=== PATIENT | male | born 1935 ===

== ENCOUNTER 2016-07-03 11:02 | Emergency (ER) | payer MEDICARE, OTHER ==
[2016-07-03 11:03] VITALS: BMI 29.0
--- NOTE | 2016-07-03 12:20 | ED PDOC ---
HPI: Abdomen Time Seen by Provider: 07/03/16 11:41 Chief Complaint (Nursing): Medical Clearance Chief Complaint (Provider): Medical Clearance History Per: Patient History/Exam Limitations: no limitations Onset/Duration Of Symptoms: Hrs Current Symptoms Are (Timing): Still Present Severity: None Exacerbating Factors: None Alleviating Factors: None Additional Complaint(s): Patient is a 80 year old male with a history of prostate CA s/p radiation, right sided hydronephrosis with indwelling nephrostomy tube. Presents to ED today due to the tube breaking off this morning and now leaking urine. Patient also notes chronic urinary incontinence. Denies fever, abdominal pain. Urologist: Dr. Peña Nephrostomy tube placed by IR, Dr. Lugo Past Medical History Reviewed: Historical Data, Nursing Documentation, Vital Signs Vital Signs: Last Vital Signs Temp 97.5 F L 07/03/16 14:57 Pulse 90 07/03/16 16:31 Resp 18 07/03/16 16:31 BP 111/66 07/03/16 16:31 Pulse Ox 98 07/04/16 15:59 - Medical History PMH: Arthritis, Atrial Fibrillation, HTN Denies: Chronic Kidney Disease - Surgical History Other surgeries: Nephrostomy tube, ureter stent - Family History Family History: States: Unknown Family Hx - Living Arrangements Living Arrangements: With Family - Home Medications Home Medications: Ambulatory Orders Medication Instructions Recorded Amlodipine Besylate/Benazepril 1 cap PO DAILY #30 capsule 04/16/16 [Lotrel 5-20 mg Capsule] Apixaban [Eliquis] 5 mg PO BID #60 tab 04/16/16 Oxybutynin [Ditropan Tab] 5 mg PO DAILY #30 tab 04/16/16 Ciprofloxacin [Cipro] 1 mg PO BID 05/26/16 - Allergies Allergies/Adverse Reactions: Allergies Allergy/AdvReac Type Severity Reaction Status Date / Time No Known Allergies Allergy Verified 07/03/16 11:28 Review of Systems ROS Statement: Except As Marked, All Systems Reviewed And Found Negative Constitutional: Negative for: Fever Gastrointestinal: Negative for: Nausea, Vomiting, Abdominal Pain Genitourinary Male: Negative for: Dysuria, Frequency, Hematuria Musculoskeletal: Negative for: Back Pain Physical Exam - Reviewed Nursing Documentation Reviewed: Yes Vital Signs Reviewed: Yes - Physical Exam Appears: Positive for: Non-toxic, No Acute Distress Skin: Positive for: Normal Color, Warm Eye Exam: Positive for: Normal appearance Neck: Positive for: Normal, Painless ROM Cardiovascular/Chest: Positive for: Regular Rate, Rhythm. Negative for: Murmur Respiratory: Positive for: Normal Breath Sounds. Negative for: Respiratory Distress Gastrointestinal/Abdominal: Positive for: Normal Exam, Other (Right side of abdomen: Nephrostomy tube broken but not dislodged with urine leaking from proximal segment ). Negative for: Tenderness Back: Positive for: Normal Inspection Extremity: Positive for: Normal ROM Neurologic/Psych: Positive for: Alert, Oriented - ECG O2 Sat by Pulse Oximetry: 98 (RA) Pulse Ox Interpretation: Normal Medical Decision Making Medical Decision Making: Time: 1210 Initial impression: Broken, dysfunction nephrostomy tube Initial plan: Case discussed with Dr. Peña who recommended contacting Dr. Lugo for possible tube replacement recommend tube change, will perform procedure this afternoon in IR with discharge according to Dr. Peña Time: 1500 Patient signed out to Dr. Lloyd pending IR's nephrology tube placement Scribe Attestation: Documented by Missy Martinez acting as a scribe for Lola Fontenot MD MD Scribe Attestation: All medical record entries made by the Scribe were at my direction and personally dictated by me. I have reviewed the chart and agree that the record accurately reflects my personal performance of the history, physical exam, medical decision making, and the department course for this patient. I have also personally directed, reviewed, and agree with the discharge instructions and disposition. Disposition - Clinical Impression Clinical Impression: Nephrostomy tube displaced - Patient ED Disposition Is Patient to be Admitted: Transfer of Care Counseled Patient/Family Regarding: Studies Performed, Diagnosis - Disposition Referrals: Yuniel Peña MD [Medical Doctor] - Disposition: Transfer of Care Disposition Time: 15:00 Condition: FAIR Additional Instructions: follow up with Dr Peña as instructed. return to the ED with any worsening or concerning symptoms. Instructions: Nephrostomy Tube Care (ED) Patient Signed Over To: Rufus Lloyd
[2016-07-03] MEDS ORDERED: Iodixanol 320 MG/ML 100 ML BOTTLE IV ONE (14:04)
[2016-07-03] MEDS ORDERED: Lidocaine 1% Inj (20ml) ONE (14:09)
[2016-07-03] MEDS ORDERED: Povidone Iodine Topical 10% Sol ONE (14:49)
[2016-07-03 14:57] VITALS: RESP 18; TEMP 97.5
--- NOTE | 2016-07-03 15:42 | ED PDOC ---
- ECG O2 Sat by Pulse Oximetry: 98 (RA) Medical Decision Making Medical Decision Making: Time: 1500 Patient signed out by Dr. Fontenot pending IR procedure Time: 1550 Patient returned from IR, procedure went well with no complication. Patient to be discharged at this time with follow up instructions, advised to follow up with Dr. Pamela Michaelibcesar Attestation: Documented by Missy Martinez acting as a scribe for Rufus Lloyd MD MD Scribe Attestation: All medical record entries made by the Scribe were at my direction and personally dictated by me. I have reviewed the chart and agree that the record accurately reflects my personal performance of the history, physical exam, medical decision making, and the department course for this patient. I have also personally directed, reviewed, and agree with the discharge instructions and disposition. Disposition - Clinical Impression Clinical Impression: Nephrostomy tube displaced - POA Present On Arrival: None - Disposition Referrals: Yuniel Peña MD [Medical Doctor] - Disposition: Routine/Home Disposition Time: 16:00 Condition: GOOD Additional Instructions: follow up with Dr Peña as instructed. return to the ED with any worsening or concerning symptoms. Instructions: Nephrostomy Tube Care (ED)
[2016-07-03 16:33] VITALS: BP 111/66; PULSE 90
[2016-07-03 20:09] VITALS: O2SAT 98
--- NOTE | 2016-07-08 13:08 | RAD ---
Right nephrostomy tube exchange History: Right-sided hydronephrosis. Comparison: Comparison is made to fluoroscopic images from prior evaluation on 05/26/2016. Procedure and findings: The procedure was explained to the patient in detail including relative risks and benefits. The patient understood the procedure well and provided written informed consent. Initial corporate director of pharmacy radiograph demonstrates the right-sided nephrostomy tube. Direct inspection demonstrates that the nephrostomy tube was cut from the outside with approximately 3-4 centimeters sutured to the skin. The sutures were cut. The access site was mildly anesthetized with 1 percent lidocaine. 75 centimeter stiff Amplatz guidewire was introduced through the existing catheter. The existing catheter was removed. A new 25 centimeter 8 [place]raini nephrostomy catheter was inserted. Confirmation of the positioning was performed by injecting a small amount of IV contrast. Impression: Successful removal of malfunctioning nephrostomy and placement of a new nephrostomy catheter in its place. The patient tolerated the procedure without any adverse event.
== END 2016-07-03 16:09 | disposition home or self-care (01) ==
LOC: H.ER 11:02
DX: T83.012A Breakdown (mechanical) of nephrostomy catheter, initial encounter (principal)
CPT/HCPCS: 75984; 99282; C1729; C1769; Q9967

== ENCOUNTER 2016-08-28 10:39 | Day surgery (SDC) | payer MEDICARE, OTHER ==
[2016-08-28 10:47] VITALS: BMI 29.5
[2016-08-28] MEDS ORDERED: Lactated Ringer's 1,000 ML IV ONE ×2 (12:00→14:05)
[2016-08-28 13:12] LABS: HEMATOCRIT 37.4 % (35.0-51.0); MEAN CELL VOLUME 89.1 fl (80.0-94.0); MEAN CORPUSCULAR HEMOGLOBIN 29.3 pg (27.0-31.0); MEAN CORPUSCULAR HGB CONC 32.9 g/dL (33.0-37.0); RED CELL DISTRIBUTION WIDTH 14.5 % (11.5-14.5); WHITE BLOOD COUNT 7.5 K/uL (4.8-10.8)
[2016-08-28 14:16] LABS: ALKALINE PHOSPHATASE 62 U/L (38-126); ALT/SGPT 23 U/L (21-72); AST/SGOT 18 U/L (17-59); BILIRUBIN,TOTAL 0.3 mg/dl (0.2-1.3); BLOOD UREA NITROGEN 29 mg/dl (9-20); CALCIUM 9.2 mg/dL (8.4-10.2); CARBON DIOXIDE 23 mmol/L (22-30); CHLORIDE 105 mmol/L (98-107); GFR AFRICAN-AMERICAN > 60; GLUCOSE,RANDOM 90 mg/dL (75-110); POTASSIUM 4.8 MMOL/L (3.6-5.0); SODIUM 139 mmol/l (132-148); TOTAL PROTEIN 6.9 G/DL (6.3-8.2)
[2016-08-28 14:17] LABS: ALB/GLOB RATIO 1.4 (1.0-2.1)
[2016-08-28 14:55] LABS: PARTIAL THROMBOPLASTIN TIME 27.7 SECONDS (23.3-32.5)
--- NOTE | 2016-08-28 15:00 | PCM.SURG1 ---
Surgeon's Initial Post Op Note - Surgeon's Notes Surgeon: Jet Martinez MD Link Cutter: NONE Type of Anesthesia: IV Sedation Pre-Operative Diagnosis: Ureteral obstruction Operative Findings: Antegrade nephrostogram showed severe pelviectasis. There is no flow of contrast across the utereovesical junction. Post-Operative Diagnosis: Ureteral obstruction Operation Performed: Antegrade nephrostogram, right perc. nephrostomy tube change for a new 8 fr drainage catheter. Specimen/Specimens Removed: 10 cc of urine for culture. Estimated Blood Loss: EBL {In ML}: 0 Blood Products Given: N/A Drains Used: No Drains Post-Op Condition: Good Date of Surgery/Procedure: 08/28/16 Time of Surgery/Procedure: 13:40
--- NOTE | 2016-08-28 15:03 | CP.SDSHP ---
Same Day Surgery H & P - History Proposed Procedure: Right percutaneous nephrostomy tube change Pre-Op Diagnosis: Ureteral obstruction - Allergies Allergies: Allergies No Known Allergies Allergy (Verified 07/03/16 11:28) - Physical Exam Vital Signs: Vital Signs 08/28/16 08/28/16 08/28/16 13:55 14:03 14:05 Temperature 97.5 F L 97.2 F L Pulse Rate 81 81 96 H Respiratory 20 18 Rate Blood Pressure 130/74 140/72 O2 Sat by Pulse 98 100 Oximetry 08/28/16 08/28/16 08/28/16 14:20 14:24 14:35 Temperature 97.5 F L 97.5 F L 97.6 F Pulse Rate 81 92 H 80 Respiratory 18 18 20 Rate Blood Pressure 132/71 169/99 H 128/68 O2 Sat by Pulse 100 100 100 Oximetry Mental Status: Alert & Oriented x3 Neuro: WNL Heart: WNL - Impression Impression: Pt with right perc. nephrostomy tube and unable to void. He is referred for antegrade nephrostogram and nephrostomy tube change. Pt. Evaluated Today:Candidate for Anesthesia & Procedure: Yes (ASA 2 Malampati 3) - Date & Time Date: 08/28/16 Time: 13:00 Short Stay Discharge - Short Stay Discharge Admitting Diagnosis/Reason for Visit: HYDRONEPHROSIS Disposition: HOME/ ROUTINE Referrals: Yuniel Peña MD [Primary Care Provider] -
[2016-08-28 15:22] VITALS: RESP 18; O2SAT 99
[2016-08-28 16:04] VITALS: BP 117/53; PULSE 76; TEMP 97.2
== END 2016-08-28 13:00 | disposition home or self-care (01) ==
LOC: H.OPSURG 10:39
PROVIDERS: ATTEND Urology
DX: N13.39 Other hydronephrosis (principal); E66.9 Obesity, unspecified; I10 Essential (primary) hypertension
CPT/HCPCS: 36415; 50435; 80053; 85027; 85610; 85730; 87086; C1725; C1729; C1769; J7120

== ENCOUNTER 2016-09-12 16:09 | Emergency (ER) | payer MEDICARE, OTHER ==
[2016-09-12 16:10] VITALS: BMI 29.5
[2016-09-12 16:24] VITALS: BP 146/71; PULSE 96; RESP 18; TEMP 98.1; O2SAT 97
--- NOTE | 2016-09-12 17:01 | ED PDOC ---
HPI: Male Pain Time Seen by Provider: 09/12/16 16:26 Chief Complaint (Nursing): Male Genitourinary Chief Complaint (Provider): Male Genitourinary History Per: Patient History/Exam Limitations: no limitations Onset/Duration Of Symptoms: Hrs (prior to arrival ) Additional Complaint(s): Lopez Rosenberg, 80 year old male presents to the ED on 09/12/16 after noticing leakage in his nephrostomy tube. The patient reports having the nephrostomy tube placed on 08/28/16 and had a follow-up appointment with Dr. Peña on Thursday. The patient noticed urine leaking from his tubing last night which prompted him to visit the emergency room today. The patient pointed out the leakage coming from the white connecting piece that enters the kidney and goes into the urine bag. Past Medical History Reviewed: Historical Data, Nursing Documentation, Vital Signs Vital Signs: Last Vital Signs Temp 98.1 F 09/12/16 16:21 Pulse 96 H 09/12/16 16:21 Resp 18 09/12/16 16:21 BP 146/71 09/12/16 16:21 Pulse Ox 97 09/12/16 16:21 - Medical History PMH: Arthritis, Atrial Fibrillation, HTN Denies: Chronic Kidney Disease - Family History Family History: States: Unknown Family Hx - Home Medications Home Medications: Ambulatory Orders Medication Instructions Recorded Amlodipine Besylate/Benazepril 1 cap PO DAILY #30 capsule 04/16/16 [Lotrel 5-20 mg Capsule] Apixaban [Eliquis] 5 mg PO BID #60 tab 04/16/16 Oxybutynin [Ditropan Tab] 5 mg PO DAILY #30 tab 04/16/16 Ciprofloxacin [Cipro] 1 mg PO BID 05/26/16 - Allergies Allergies/Adverse Reactions: Allergies Allergy/AdvReac Type Severity Reaction Status Date / Time No Known Allergies Allergy Verified 09/12/16 16:21 Review of Systems ROS Statement: Except As Marked, All Systems Reviewed And Found Negative Constitutional: Positive for: Other (leakage from nephrostomy tube) Physical Exam - Reviewed Nursing Documentation Reviewed: Yes Vital Signs Reviewed: Yes - Physical Exam Appears: Positive for: Non-toxic, No Acute Distress Head Exam: Positive for: ATRAUMATIC, NORMOCEPHALIC Back: Negative for: Other (no surrounding erythema, edema, or ecchymosis around insertion site of nephrostomy tube) Neurologic/Psych: Positive for: Alert, Oriented (x3) - ECG O2 Sat by Pulse Oximetry: 97 (RA) Pulse Ox Interpretation: Normal Medical Decision Making Medical Decision Making: Initial Impression: Nephrostomy tube leaking Initial Plan: Some liquid noted at the white connecting piece. Tightened white connecting piece at junction. No urine leaking. New dressing applied around insertion site. Scribe Attestation: Documented by Sailaja Reyes, acting as a scribe for Kati King PA-C. Provider Scribe Attestation: All medical record entries made by the Scribe were at my direction and personally dictated by me. I have reviewed the chart and agree that the record accurately reflects my personal performance of the history, physical exam, medical decision making, and the department course for this patient. I have also personally directed, reviewed, and agree with the discharge instructions and disposition. Disposition - Clinical Impression Clinical Impression: Malfunction of nephrostomy tube - Patient ED Disposition Is Patient to be Admitted: No - Disposition Referrals: Yuniel Peña MD [Medical Doctor] - Disposition: Routine/Home Disposition Time: 17:26 Condition: GOOD Instructions: Nephrostomy Tube Care (ED) Print Language: OCCITAN
== END 2016-09-12 17:36 | disposition home or self-care (01) ==
LOC: H.ER 16:09
DX: T83.028A Displacement of other urinary catheter, initial encounter (principal)

== ENCOUNTER 2016-11-03 10:11 | Day surgery (SDC) | payer MEDICARE, SELFPAY ==
[2016-11-03 10:41] VITALS: BMI 30.1
[2016-11-03 13:33] VITALS: RESP 18
[2016-11-03] MEDS ORDERED: Iodixanol 320 MG/ML 100 ML BOTTLE IV ONE (13:36)
[2016-11-03] MEDS ORDERED: Lidocaine 1% Inj (20ml) ONE (13:49)
--- NOTE | 2016-11-03 14:02 | CP.SDSHP ---
Same Day Surgery H & P - History Proposed Procedure: Right nephrostomy tube change Pre-Op Diagnosis: Hydronephrosis. - Allergies Allergies: Allergies No Known Allergies Allergy (Verified 09/12/16 16:21) - Physical Exam Vital Signs: Vital Signs 11/03/16 11/03/16 10:49 13:32 Temperature 97.8 F 97 F L Pulse Rate 88 85 Respiratory 20 18 Rate Blood Pressure 119/64 127/59 L O2 Sat by Pulse 95 100 Oximetry Mental Status: Alert & Oriented x3 Neuro: WNL Heart: WNL Lungs: WNL - Impression Impression: Pt with hydronephrosis presents for Right nephrostomy tube change Pt. Evaluated Today:Candidate for Anesthesia & Procedure: No - Date & Time Date: 11/03/16 Time: 13:35 Short Stay Discharge - Short Stay Discharge Admitting Diagnosis/Reason for Visit: N13.39
--- NOTE | 2016-11-03 14:03 | PCM.SURG1 ---
Surgeon's Initial Post Op Note - Surgeon's Notes Surgeon: Jet Martinez MD Net Front End Developer: None Type of Anesthesia: Local Pre-Operative Diagnosis: Right hydronephrosis. Operative Findings: Right nephrostogram shows moderate pelviectasis. Post-Operative Diagnosis: Right hydronephrosis Operation Performed: Right perc. nephrstomy tube change. Specimen/Specimens Removed: None Estimated Blood Loss: EBL {In ML}: 0 Blood Products Given: N/A Drains Used: No Drains Post-Op Condition: Good Date of Surgery/Procedure: 11/03/16 Time of Surgery/Procedure: 14:00
[2016-11-03 14:23] VITALS: BP 142/79; PULSE 86; TEMP 97.8; O2SAT 98
== END 2016-11-03 23:00 | disposition home or self-care (01) ==
LOC: H.OPSURG 10:11
PROVIDERS: ATTEND Radiology Vascular & Interventional Radiology
DX: N13.30 Unspecified hydronephrosis (principal)
CPT/HCPCS: 50435; C1729; C1769; Q9967

== ENCOUNTER 2017-01-01 09:09 | Day surgery (SDC) | payer MEDICARE ==
[2017-01-01] MEDS ORDERED: Iodixanol 320 MG/ML 100 ML BOTTLE IV ONE (11:57)
[2017-01-01] MEDS ORDERED: Lidocaine 1% Inj (20ml) ONE (12:18)
--- NOTE | 2017-01-01 12:27 | CP.SDSHP ---
Same Day Surgery H & P - History Proposed Procedure: Right nephrostomy tube change Pre-Op Diagnosis: Ureteral obstruction - Allergies Allergies: Allergies No Known Allergies Allergy (Verified 09/12/16 16:21) - Physical Exam Vital Signs: Vital Signs 01/01/17 01/01/17 01/01/17 09:31 09:36 12:08 Temperature 98.9 F 97.8 F Pulse Rate 92 H 92 H 82 Respiratory 18 16 Rate Blood Pressure 119/58 L 121/63 O2 Sat by Pulse 98 100 Oximetry Mental Status: Alert & Oriented x3 Neuro: WNL Heart: WNL Lungs: WNL - Impression Impression: Pt with ureteral obstruction refered for right perc. nephrostomy tube change. Plan right PCN change. Pt. Evaluated Today:Candidate for Anesthesia & Procedure: No - Date & Time Date: 01/01/17 Time: 12:00 Short Stay Discharge - Short Stay Discharge Admitting Diagnosis/Reason for Visit: N13.39 Referrals: Cody Rodriugez MD [Primary Care Provider] -
--- NOTE | 2017-01-01 12:29 | PCM.SURG1 ---
Surgeon's Initial Post Op Note - Surgeon's Notes Surgeon: Jet Martinez MD Almond Paste Mixer: NONE Type of Anesthesia: Local Pre-Operative Diagnosis: Ureteral obstruction Operative Findings: Right PCN in place. Moderate pelviectasis. Post-Operative Diagnosis: Ureteral obstruction Operation Performed: Perc. nephrostomy tube change Specimen/Specimens Removed: none Estimated Blood Loss: EBL {In ML}: 0 Blood Products Given: N/A Drains Used: No Drains Post-Op Condition: Good Date of Surgery/Procedure: 01/01/17 Time of Surgery/Procedure: 12:25
[2017-01-01 12:48] VITALS: BP 141/72; PULSE 87; RESP 18; TEMP 97.6; O2SAT 98
--- NOTE | 2017-01-05 13:37 | RAD ---
PROCEDURE: Date of procedure: 01/01/2017 Procedure: 1. Right nephrostogram, CPT 43317. 2. Exchange of right percutaneous nephrostomy tube, CPT 70755 Medications: Patient was sedated by anesthesiologist along with physiologic monitoring, 8 cc 2% Lidocaine. Radiation:61.59 MGy Fluoro time: 64 seconds EBL: 2 cc HISTORY: Uteral obstruction TECHNIQUE: Following informed consent the procedure time-out, patient was placed prone on the interventional table. The patient's right percutaneous nephrostomy tube and surrounding skin were prepped and draped in the usual sterile fashion. Spot radiographs show the presence of right percutaneous nephrostomy tube. Dilute contrast injected into the right percutaneous nephrostomy tube showed moderate hydronephrosis. Antegrade nephrostogram showed stenosis of the ureter at the UPJ and at the UVJ. A new 8 [place] nephrostomy tube was advanced over the wire and formed within the renal pelvis. The tube was secured to patient's skin with 2-0 Prolone and a dressing applied. IMPRESSION: Right nephrostogram showed proximal and severe distal right ureteral obstruction. New right 8 [place] nephrostomy tubes were formed in the renal pelvis.
== END 2017-01-01 13:10 | disposition home or self-care (01) ==
LOC: H.OPSURG 09:09
PROVIDERS: ATTEND Urology
DX: N13.39 Other hydronephrosis (principal)
CPT/HCPCS: 75984; C1729; C1769; Q9967

== ENCOUNTER 2017-03-02 08:14 | Day surgery (SDC) | payer MEDICARE, SELFPAY ==
[2017-02-06 11:51] VITALS: BMI 29.5
[~2017-03-02 08:14] MED LIST: cefTRIAXone (Rocephin) 1 gm Inj ONE
[2017-03-02] MEDS ORDERED: cefTRIAXone IV 1 gm in Dextros 50 ML IVPB ONE (12:51)
[2017-03-02] MEDS ORDERED: Midazolam 2 MG/2 ML VIAL ONE (12:55)
[2017-03-02] MEDS ORDERED: Lidocaine 1% 5ml Abboject IV ONE (12:55)
[2017-03-02] MEDS ORDERED: Propofol 10 mg/ml Inj (20 ML) ONE (12:55)
[2017-03-02] MEDS ORDERED: Lactated Ringer's 1,000 ML IV ONE (13:02)
[2017-03-02] MEDS ORDERED: cefTRIAXone (Rocephin) 1 gm Inj IVPB ONE (13:05)
[2017-03-02 13:45] VITALS: RESP 18
[2017-03-02] MEDS ORDERED: HYDROmorphone 0.5 mg/0.5 ml ISec IVP PRN (13:53)
[2017-03-02] MEDS ORDERED: Lactated Ringer's 1,000 ML IV SCH (14:00)
--- NOTE | 2017-03-02 14:05 | OP ---
PROCEDURE DATE: 03/02/2017 PREOPERATIVE DIAGNOSES: Hydronephrosis with bladder neck stricture. POSTOPERATIVE DIAGNOSES: Hydronephrosis with bladder neck stricture. PROCEDURE PERFORMED: Cystoscopy, internal optical urethrotomy at the level of the bladder neck and removal of a left existing double-J stent under general anesthesia. DESCRIPTION OF PROCEDURE: The patient was placed on the operating room table in dorsal lithotomy position. The area of the groin was draped and prepped in the sterile manner. Attempted to enter into the bladder using a #21 cystoscope, but at the level of the bladder neck, there was a significant stricture that did not allow that to happen. I then deployed an optical urethrotome and I made an incision just small enough at the 12 o'clock and 6 o'clock to be able to get the 21 scope in. Once I did that, the J stent was easily seen and I removed. The entire trigone area was full of edematous tissue. Once the stent was removed, I could not even find that orifice again just even to cannulate it. It was not visible and the right side is still not visible at this time, so the J stent was removed, the instrumentation was removed. The patient was taken from the operating room in good condition. Yuniel Peña MD
[2017-03-02 16:09] VITALS: BP 114/75; PULSE 98; TEMP 97.6; O2SAT 98
== END 2017-03-02 16:58 | disposition home or self-care (01) ==
LOC: H.OPSURG 08:14
PROVIDERS: ATTEND Urology
DX: N23 Unspecified renal colic (principal); I48.91 Unspecified atrial fibrillation; I10 Essential (primary) hypertension
CPT/HCPCS: 36415; 52275; 85610; 85730; 88304; C1769; J0696; J2250; J2704; J3010; J7120

== ENCOUNTER 2017-04-28 07:45 | Day surgery (SDC) | payer MEDICARE ==
[2017-04-28 07:55] VITALS: BMI 30.4
[2017-04-28 08:34] LABS: HEMOGLOBIN 12.8 g/dL (12.0-18.0); MEAN CORPUSCULAR HEMOGLOBIN 29.6 pg (27.0-31.0); MEAN CORPUSCULAR HGB CONC 33.2 g/dL (33.0-37.0); RBC 4.33 Mil/uL (4.40-5.90); RED CELL DISTRIBUTION WIDTH 14.6 % (11.5-14.5); WHITE BLOOD COUNT 7.2 K/uL (4.8-10.8)
[2017-04-28] MEDS ORDERED: Iodixanol 320 MG/ML 100 ML BOTTLE IV ONE (09:03)
[2017-04-28] MEDS ORDERED: Povidone Iodine Topical 10% Sol ONE (09:03)
[2017-04-28] MEDS ORDERED: Lidocaine 1% Inj (20ml) ONE (09:15)
--- NOTE | 2017-04-28 09:54 | CP.SDSHP ---
Same Day Surgery H & P - History Proposed Procedure: Right antegrade nephrostogram and nephrostomy exchange/ conversion to nephroureteral stent Pre-Op Diagnosis: Chronic right distal ureteral obstruction - Allergies Allergies: Allergies No Known Allergies Allergy (Verified 04/28/17 08:55) - Physical Exam Vital Signs: Vital Signs 04/28/17 04/28/17 08:42 08:46 Temperature 97.6 F Pulse Rate 79 79 Respiratory 18 Rate Blood Pressure 115/78 O2 Sat by Pulse 97 Oximetry - Impression Impression: 81 yo male w/ chronic right ureteral obstruction s/p right PCN; plan antegrade nephrostogram and nephrostomy exchange vs conversion to nephroureteral stent - Date & Time Date: 04/28/17 Time: 09:15 Short Stay Discharge - Short Stay Discharge Admitting Diagnosis/Reason for Visit: RT HYDRONEPHROSIS Disposition: HOME/ ROUTINE Referrals: Cody Rodriguez MD [Primary Care Provider] -
[2017-04-28 10:00] LABS: INR 1.2 (0.9-1.2); PROTHROMBIN TIME 12.8 Seconds (9.8-13.1)
[2017-04-28 10:22] LABS: CALCIUM 9.4 mg/dL (8.4-10.2)
[2017-04-28] MEDS ORDERED: Ciprofloxacin 400mg/200ml D5W 400 MG/200 ML BAG IVPB STA (11:03)
--- NOTE | 2017-04-28 12:36 | PCM.SURG1 ---
Surgeon's Initial Post Op Note - Surgeon's Notes Surgeon: Alec Negron MD Typing Bookkeeper: None Type of Anesthesia: Local Pre-Operative Diagnosis: chronic right hydronephrosis, ureteral occlusion Operative Findings: severe pelvocaliectasis, patent right ureter w/ distal occlusion. successful over the wire exchange with new 8 serbian PCN placed in renal pelvis Post-Operative Diagnosis: same Operation Performed: right PCN exchange Specimen/Specimens Removed: n/a Estimated Blood Loss: EBL {In ML}: 0 Date of Surgery/Procedure: 04/28/17 Time of Surgery/Procedure: 12:15
[2017-04-28 13:01] VITALS: O2SAT 96
[2017-04-28 13:54] VITALS: RESP 18
[2017-04-28 14:37] VITALS: BP 107/65; PULSE 80; TEMP 97.9
--- NOTE | 2017-04-28 15:13 | VASCULAR ---
PROCEDURE: RIGHT NEPHROSTOMY TUBE EXCHANGE CLINICAL HISTORY: 81-year-old male with history of prostate cancer and chronic right hydronephrosis status post nephrostomy tube is referred to Interventional Radiology for routine nephrostomy tube exchange. COMPARISON: Right nephrostomy tube exchange performed 01/01/2017. PROCEDURE: 1. Over the wire exchange of right nephrostomy tube. PRE-PROCEDURE FINDINGS: 1. Fluoroscopic supervisor in circuit testing image demonstrated right nephrostomy tube projecting over the right flank. 2. Antegrade nephrostogram demonstrated opacification of the collecting system without flow of contrast into the bladder. POST-PROCEDURE FINDINGS: 1. Distal right ureteral occlusion. 2. Successful over the wire exchange of right nephrostomy tube with pigtail in the renal pelvis. INTERVENTIONAL RADIOLOGIST: Alec Negron M.D. (the attending was present for the entire procedure) ANESTHESIA: None. MEDICATIONS: Lidocaine 1% for local subcutaneous analgesia. mL contrast. CONTRAST: 20 mL contrast. COMPLICATIONS: None. RADIATION DOSE: Fluoroscopy Time: 941.2 seconds Cumulative Dose: 631.91 mGy PROCEDURE DESCRIPTION AND FINDINGS: The risks, benefits, alternatives and possible complications of the procedure were fully discussed; all questions were answered and informed consent was obtained. The patient was brought into the interventional suite and a pre-procedure 'time-out' was performed. The patient was placed on the fluoroscopy table in the prone position. The right flank was prepped and draped in the usual sterile fashion. Maximum sterile barrier precautions were maintained throughout the entire procedure. Fluoroscopic supervisor in circuit testing image of the abdomen and pelvis demonstrated right nephrostomy tube projecting over the right flank. Antegrade nephrostogram performed via the indwelling right nephrostomy tube demonstrated opacification of the renal collecting system. The external end of the catheter was cut and a 0.035 guidewire was advanced via the remaining portion of the catheter into the renal pelvis. The catheter was removed over the guidewire and exchanged for 4 [place] Berenstein catheter. The guidewire and catheter were manipulated into the right ureter. Contrast injection into the ureter revealed distal ureteral occlusion. The catheter was removed over the guidewire and exchanged for a new 8 [place] nephrostomy tube. The pigtail was formed in the renal pelvis. Gentle contrast injection confirmed optimal position within the renal pelvis. The catheter was secured to the skin with a 2-0 non-absorbable suture and left to gravity bag drainage externally. A sterile dressing was applied. The patient tolerated the procedure well without immediate post-procedure complications and was transferred back to the floor in stable condition. IMPRESSION: RIGHT ANTEGRADE NEPHROSTOGRAM DEMONSTRATED DISTAL URETERAL OCCLUSION. THE OCCLUSION COULD NOT BE CROSSED. SUCCESSFUL OVER THE WIRE EXCHANGE OF THE 8 L[place] RIGHT NEPHROSTOMY TUBE.
== END 2017-04-28 14:50 | disposition home or self-care (01) ==
LOC: H.OPSURG 07:45
PROVIDERS: ATTEND Urology
DX: N13.2 Hydronephrosis with renal and ureteral calculous obstruction (principal); Z85.46 Personal history of malignant neoplasm of prostate; N13.5 Crossing vessel and stricture of ureter without hydronephrosis; Z93.6 Other artificial openings of urinary tract status
CPT/HCPCS: 36415; 50435; 80048; 85027; 85610; 85730; C1729; C1769; C1887; J0744; Q9967

== ENCOUNTER 2017-07-21 07:58 | Day surgery (SDC) | payer MEDICARE ==
[2017-07-21 08:41] LABS: BASO % 0.5 % (0.0-2.0); EOS # 0.2 K/uL (0.0-0.7); EOS % 2.3 % (0.0-4.0); HEMOGLOBIN 15.1 g/dL (12.0-18.0); LYMPH # 1.1 K/uL (1.0-4.3); LYMPH % 15.8 % (20.0-40.0); MEAN CELL VOLUME 89.2 fl (80.0-94.0); MEAN CORPUSCULAR HEMOGLOBIN 29.6 pg (27.0-31.0); MEAN CORPUSCULAR HGB CONC 33.1 g/dL (33.0-37.0); MEAN PLATELET VOLUME 8.9 fl (7.2-11.7); MONO # 0.6 K/uL (0.0-0.8); MONO % 9.3 % (0.0-10.0); NEUT # 4.9 K/uL (1.8-7.0); NEUT % 72.1 % (50.0-75.0); NRBC % 0.1 % (0.0-0.0); RBC 5.11 Mil/uL (4.40-5.90); RED CELL DISTRIBUTION WIDTH 14.5 % (11.5-14.5); WHITE BLOOD COUNT 6.8 K/uL (4.8-10.8)
[2017-07-21 08:46] LABS: INR 1.1 (0.9-1.2); PARTIAL THROMBOPLASTIN TIME 31.1 Seconds (25.6-37.1); PROTHROMBIN TIME 11.7 Seconds (9.8-13.1)
[2017-07-21 08:51] LABS: CALCIUM 9.8 mg/dL (8.4-10.2)
[2017-07-21] MEDS ORDERED: Iodixanol 320 mg/ml 50 ml Sol IV ONE (10:03)
[2017-07-21] MEDS ORDERED: Lidocaine Hydrochloride 1% 10 ML ONE (10:20)
--- NOTE | 2017-07-21 10:57 | CP.SDSHP ---
Same Day Surgery H & P - History Proposed Procedure: right nephrostomy tube exchange Pre-Op Diagnosis: chronic distal right ureteral obstruction - Allergies Allergies: Allergies No Known Allergies Allergy (Verified 07/21/17 08:16) - Physical Exam Vital Signs: Vital Signs 07/21/17 07/21/17 07/21/17 08:23 08:32 10:33 Temperature 97.8 F 97.9 F Pulse Rate 99 H 99 H 88 Respiratory 20 18 Rate Blood Pressure 141/63 126/68 O2 Sat by Pulse 98 99 Oximetry - Impression Impression: 81 yo male w/ chronic distal right ureteral obstruction; plan right nephrostomy tube exchange - Date & Time Date: 07/21/17 Time: 10:00 Short Stay Discharge - Short Stay Discharge Admitting Diagnosis/Reason for Visit: RT HYDRONEPHROSIS Disposition: HOME/ ROUTINE Referrals: Cody Rodriguez MD [Primary Care Provider] -
--- NOTE | 2017-07-21 10:58 | PCM.SURG1 ---
Surgeon's Initial Post Op Note - Surgeon's Notes Surgeon: Alec Negron MD Baccarat Dealer: None Type of Anesthesia: Local Pre-Operative Diagnosis: chronic right ureteral obstruction Operative Findings: right hydronephrosis; distal right ureteral obstruction Post-Operative Diagnosis: same Operation Performed: Right Nephrostomy Tube Exchange Specimen/Specimens Removed: n/a Estimated Blood Loss: EBL {In ML}: 0 Date of Surgery/Procedure: 07/21/17 Time of Surgery/Procedure: 10:45
[2017-07-21 12:33] VITALS: BP 120/66; PULSE 98; RESP 20; TEMP 97.5; O2SAT 96
== END 2017-07-21 12:15 | disposition home or self-care (01) ==
LOC: H.OPSURG 07:58
PROVIDERS: ATTEND Urology
DX: N13.39 Other hydronephrosis (principal)
CPT/HCPCS: 36415; 50435; 75984; 80048; 85025; 85610; 85730; A4310; C1729; Q9967

== ENCOUNTER 2017-09-29 09:58 | Day surgery (SDC) | payer MEDICARE ==
[2017-09-29 11:10] VITALS: BMI 31.0
[2017-09-29 12:00] LABS: INR 1.2 (0.9-1.2); PROTHROMBIN TIME 13.1 Seconds (9.8-13.1)
[2017-09-29] MEDS ORDERED: Lidocaine 1% Inj (20ml) ONE (12:00)
[2017-09-29] MEDS ORDERED: Iodixanol 320 mg/ml 50 ml Sol IV ONE (12:04)
--- NOTE | 2017-09-29 12:39 | CP.SDSHP ---
Same Day Surgery H & P - History Proposed Procedure: Right PCN change Pre-Op Diagnosis: Ureteral obstruction - Allergies Allergies: Allergies No Known Allergies Allergy (Verified 09/29/17 11:08) - Physical Exam Vital Signs: Vital Signs 09/29/17 11:00 Temperature 97.7 F Pulse Rate 74 Respiratory 18 Rate Blood Pressure 112/65 O2 Sat by Pulse 97 Oximetry Mental Status: Alert & Oriented x3 Neuro: WNL Lungs: WNL - Impression Impression: Pt with ureteral obstruction and right hydronephrosis. Pt has a right PCN. Last change of PCN was in July. Plan right PCN change. Pt. Evaluated Today:Candidate for Anesthesia & Procedure: No - Date & Time Date: 09/29/17 Time: 12:15 Short Stay Discharge - Short Stay Discharge Admitting Diagnosis/Reason for Visit: RT HYDROEPHROSIS Referrals: Cody Rodriguez MD [Primary Care Provider] -
--- NOTE | 2017-09-29 12:41 | PCM.SURG1 ---
Surgeon's Initial Post Op Note - Surgeon's Notes Surgeon: Jet Martinez MD Jacquard Loom Heddles Tier: NONE Type of Anesthesia: Local, None Pre-Operative Diagnosis: Right hydronephrosis Operative Findings: Nephrostogram showed existing PCN in renal pelvis. There is pelviectasis, no hydronephrosis. Post-Operative Diagnosis: Right hydronephrosis Operation Performed: Right PCN change Specimen/Specimens Removed: none Estimated Blood Loss: EBL {In ML}: 0 Blood Products Given: N/A Drains Used: No Drains Post-Op Condition: Good Date of Surgery/Procedure: 09/29/17 Time of Surgery/Procedure: 12:35
[2017-09-29 13:04] VITALS: BP 142/76; PULSE 73; RESP 18; TEMP 97.6; O2SAT 96
--- NOTE | 2017-09-30 09:41 | VASCULAR ---
Date of Procedure: 09/29/2017 Procedure: 1. Right nephrostogram, CPT 14095. 2. Exchange of right percutaneous nephrostomy tube, CPT 88173 Medications: 8 cc 2% Lidocaine. Radiation: 7.47 MGy Fluoro time: 26.2 seconds EBL: 0 cc HISTORY: Ureteral obstruction TECHNIQUE: Following informed consent the procedure time-out, patient was placed prone on the interventional table. The patient's right percutaneous nephrostomy tube and surrounding skin were prepped and draped in the usual sterile fashion. Spot radiographs show the presence of right percutaneous nephrostomy tube. Dilute contrast injected into the right percutaneous nephrostomy tube showed pelviectasis. There is no hydronephrosis. Antegrade nephrostogram showed stenosis of the ureter at the UPJ and at the UVJ. A new 8 Uzbek nephrostomy tube was advanced over the wire and formed within the renal pelvis. The tube was secured to patient's skin with 3-0 Prolone and a dressing applied. IMPRESSION: Right nephrostogram showed proximal and distal right ureteral obstruction. New right 8 Uzbek nephrostomy tubes were formed in the renal pelvis.
== END 2017-09-29 14:00 | disposition home or self-care (01) ==
LOC: H.OPSURG 09:58
PROVIDERS: ATTEND Urology
DX: N13.1 Hydronephrosis with ureteral stricture, not elsewhere classified (principal)
CPT/HCPCS: 36415; 50435; 85610; C1729; C1769; Q9967

== ENCOUNTER 2017-10-22 10:36 | Emergency (ER) | payer MEDICARE ==
[2017-10-22 10:48] VITALS: BP 129/73; PULSE 83; TEMP 97; O2SAT 98
[2017-10-22 10:49] VITALS: BMI 31.3
[2017-10-22 11:05] VITALS: RESP 19
--- NOTE | 2017-10-22 11:36 | ED PDOC ---
HPI: General Adult Time Seen by Provider: 10/22/17 11:00 Chief Complaint (Nursing): Male Genitourinary Chief Complaint (Provider): Wound Check History Per: Patient History/Exam Limitations: no limitations Onset/Duration Of Symptoms: Days Current Symptoms Are (Timing): Still Present Additional Complaint(s): 81 y/o male with a PMHx of HTN and AFIB presents to the ED for a wound check. Patient states on September 27, he had a urinary catheter inserted to allow him to urinate given his condition, right hydronephrosis. Patient reports bandage fell off and would like to get it changed. Patient states the tube did not fall out he just wants bandage changed. Denies any other complaints. Urologist: Yuniel Peña Past Medical History Reviewed: Historical Data, Nursing Documentation, Vital Signs Vital Signs: Last Vital Signs Temp 97 F L 10/22/17 10:47 Pulse 83 10/22/17 10:47 Resp 19 10/22/17 11:02 BP 129/73 10/22/17 10:47 Pulse Ox 98 10/22/17 12:46 - Medical History PMH: Arthritis, Atrial Fibrillation, HTN Denies: Anemia, Chronic Kidney Disease - Surgical History Other surgeries: pelvic surgery - Family History Family History: States: Unknown Family Hx - Social History Current smoker - smoking cessation education provided: No Alcohol: None Drugs: Denies - Home Medications Home Medications: Ambulatory Orders Medication Instructions Recorded Amlodipine Besylate/Benazepril 1 cap PO DAILY #30 capsule 04/16/16 [Lotrel 5-20 mg Capsule] Apixaban [Eliquis] 2.5 mg PO BID 03/02/17 - Allergies Allergies/Adverse Reactions: Allergies Allergy/AdvReac Type Severity Reaction Status Date / Time No Known Allergies Allergy Verified 10/22/17 11:07 Review of Systems ROS Statement: Except As Marked, All Systems Reviewed And Found Negative Constitutional: Positive for: Other (wound check) Genitourinary Male: Negative for: Dysuria, Frequency, Incontinence, Hematuria, Penile Discharge, Scrotal Pain, Rash, Penile Pain Physical Exam - Reviewed Nursing Documentation Reviewed: Yes Vital Signs Reviewed: Yes - Physical Exam Appears: Positive for: No Acute Distress Head Exam: Positive for: ATRAUMATIC, NORMOCEPHALIC Skin: Positive for: Normal Color, Warm, Dry Eye Exam: Positive for: Normal appearance, EOMI, PERRL ENT: Positive for: Normal ENT Inspection Neck: Positive for: Normal, Painless ROM Cardiovascular/Chest: Positive for: Regular Rate, Rhythm Respiratory: Positive for: Normal Breath Sounds Gastrointestinal/Abdominal: Positive for: Normal Exam, Other (R ureteral drain, clean dry and intact site. bandage is falling off. ) Extremity: Positive for: Normal ROM. Negative for: Pedal Edema, Deformity Neurologic/Psych: Positive for: Alert, Oriented (x3). Negative for: Motor/ Sensory Deficits - ECG O2 Sat by Pulse Oximetry: 98 (RA) Pulse Ox Interpretation: Normal Medical Decision Making Medical Decision Making: Time: 1135 -- Patient to having dressing reapplied and to be discharged home. Area around bandage is clean, dry and intact. -- Patient is advised to return to the emergency room at any time for any new or worsening symptoms. -- Patient states he fully agrees with and understands discharge instructions. States that he agrees with the plan and disposition and follow up with Dr Peña , Verbalized and repeated discharge instructions and plan. I have given the patient opportunity to ask any additional questions. Scribe Attestation: Documented by Antione Casiano acting as a scribe for Dr. Rufus Lloyd MD. Provider Scribe Attestation: All medical record entries made by the Scribe were at my direction and personally dictated by me. I have reviewed the chart and agree that the record accurately reflects my personal performance of the history, physical exam, medical decision making, and the department course for this patient. I have also personally directed, reviewed, and agree with the discharge instructions and disposition. Disposition - Clinical Impression Clinical Impression: Visit for wound check - Patient ED Disposition Is Patient to be Admitted: No Counseled Patient/Family Regarding: Studies Performed, Diagnosis, Need For Followup - Disposition Disposition: Routine/Home Disposition Time: 12:00 Condition: IMPROVED Additional Instructions: follow up with Dr Peña as instructed return to the ED with any worsening or concerning symptoms Instructions: Wound Care (DC) Forms: [facility] (Swedish) Print Language: THAI
== END 2017-10-22 12:10 | disposition home or self-care (01) ==
LOC: H.ER 10:36
DX: Z48.00 Encounter for change or removal of nonsurgical wound dressing (principal); I10 Essential (primary) hypertension; I48.91 Unspecified atrial fibrillation; Z79.01 Long term (current) use of anticoagulants

== ENCOUNTER 2018-01-06 09:19 | Day surgery (SDC) | payer MEDICARE ==
[2018-01-06 09:37] VITALS: BMI 31.0
[2018-01-06 11:11] LABS: HEMOGLOBIN 12.7 g/dL (12.0-18.0); MEAN CELL VOLUME 89.4 fl (80.0-94.0); MEAN CORPUSCULAR HEMOGLOBIN 30.4 pg (27.0-31.0); MEAN CORPUSCULAR HGB CONC 34.1 g/dL (33.0-37.0); RBC 4.16 Mil/uL (4.40-5.90); RED CELL DISTRIBUTION WIDTH 14.2 % (11.5-14.5); WHITE BLOOD COUNT 6.1 K/uL (4.8-10.8)
[2018-01-06 11:21] LABS: ALB/GLOB RATIO 1.2 (1.0-2.1); ALBUMIN 3.8 g/dL (3.5-5.0); CALCIUM 9.2 mg/dL (8.4-10.2)
[2018-01-06 11:22] LABS: INR 1.1; PROTHROMBIN TIME 12.4 Seconds (9.8-13.1)
[2018-01-06 11:26] LABS: PARTIAL THROMBOPLASTIN TIME 33.9 Seconds (25.6-37.1)
[2018-01-06] MEDS ORDERED: Lidocaine 1% 5ml Abboject ONE (12:53)
--- NOTE | 2018-01-06 12:58 | CP.SDSHP ---
Same Day Surgery H & P - History Proposed Procedure: RIght PCN change Pre-Op Diagnosis: Hydronephrosis - Allergies Allergies: Allergies No Known Allergies Allergy (Verified 10/22/17 11:07) - Physical Exam Vital Signs: Vital Signs 01/06/18 01/06/18 09:39 09:42 Temperature 96.6 F L Pulse Rate 92 H Pulse Rate [ 92 H Bilateral Radial] Respiratory 20 20 Rate Blood Pressure 133/68 O2 Sat by Pulse 98 Oximetry Mental Status: Alert & Oriented x3 - Impression Impression: Pt with right PCN for ureteral obstruction. He present for PCN change after 3 months. Plan right PCN change. Pt. Evaluated Today:Candidate for Anesthesia & Procedure: No Short Stay Discharge - Short Stay Discharge Admitting Diagnosis/Reason for Visit: HYDRONEPHROSIS Disposition: HOME/ ROUTINE
--- NOTE | 2018-01-06 13:13 | PCM.SURG1 ---
Surgeon's Initial Post Op Note - Surgeon's Notes Surgeon: Jet Martinez MD Mortgage Loan Assistant: NONE Type of Anesthesia: Local Pre-Operative Diagnosis: Hydronephrosis, ureteral obstruction Operative Findings: Nephrostogram showed moderate right hydroenephrosis. Post-Operative Diagnosis: Hydronephrosis, ureteral obstruction Operation Performed: Right perc. nephrostomy tube change. Specimen/Specimens Removed: NONE Estimated Blood Loss: EBL {In ML}: 1 Blood Products Given: N/A Drains Used: Jonatan [place] Post-Op Condition: Good Date of Surgery/Procedure: 01/06/18 Time of Surgery/Procedure: 13:10
[2018-01-06] MEDS ORDERED: Iodixanol 320 MG/ML 100 ML BOTTLE IV ONE (13:20)
[2018-01-06 13:33] VITALS: O2SAT 99
[2018-01-06 14:06] VITALS: RESP 20
[2018-01-06 15:29] VITALS: BP 124/77; PULSE 83; TEMP 96.6
--- NOTE | 2018-01-08 12:41 | VASCULAR ---
PROCEDURE: Date of procedure: 01/06/2018 Procedure: 1. Right , CPT 87415. 2. Exchange of right percutaneous nephrostomy tubes, CPT 42751 Medications: 6 cc 2% Lidocaine. Radiation: 8.68 MGy Fluoro time: 22.5 Seconds EBL: 2 cc HISTORY: Right ureteral obstruction TECHNIQUE: Following informed consent the procedure time-out, patient was placed prone on the interventional table. The patient's right percutaneous nephrostomy tube and surrounding skin were prepped and draped in the usual sterile fashion. Spot radiograph show the presence of right percutaneous nephrostomy tube. Dilute contrast injected into the right percutaneous nephrostomy tube showed moderate hydronephrosis. A new 8.5 Moroccan nephrostomy tube was advanced over the wire and formed within the renal pelvis. The tube was secured to patient's skin with 2-0 Prolone and a dressing applied. IMPRESSION: Right antegrade nephrostogram showed moderate hydronephrosis. New right 8.5 Moroccan nephrostomy tubes were formed in the renal pelvis.
== END 2018-01-06 15:20 | disposition home or self-care (01) ==
LOC: H.OPSURG 09:19
PROVIDERS: ATTEND Urology
DX: N13.1 Hydronephrosis with ureteral stricture, not elsewhere classified (principal)
CPT/HCPCS: 36415; 50435; 80053; 83735; 84100; 85027; 85610; 85730; A4310; C1729; Q9967

== ENCOUNTER 2018-03-04 09:10 | Emergency (ER) | payer MEDICARE, SELFPAY ==
[2018-03-04 09:19] VITALS: BP 146/69; PULSE 95; RESP 16; TEMP 97.6; O2SAT 96
[2018-03-04 10:40] LABS: BASO # 0.1 K/uL (0.0-0.2); BASO % 0.7 % (0.0-2.0); EOS # 0.1 K/uL (0.0-0.7); EOS % 1.6 % (0.0-4.0); HEMOGLOBIN 13.7 g/dL (12.0-18.0); LYMPH # 0.9 K/uL (1.0-4.3); LYMPH % 9.2 % (20.0-40.0); MEAN CELL VOLUME 91.3 fl (80.0-94.0); MEAN CORPUSCULAR HEMOGLOBIN 29.7 pg (27.0-31.0); MEAN CORPUSCULAR HGB CONC 32.5 g/dL (33.0-37.0); MONO % 10.3 % (0.0-10.0); NEUT # 7.2 K/uL (1.8-7.0); NEUT % 78.2 % (50.0-75.0); NRBC % 0.1 % (0.0-0.0); PLATELET COUNT 234 K/uL (130-400); RBC 4.61 Mil/uL (4.40-5.90); WHITE BLOOD COUNT 9.3 K/uL (4.8-10.8)
[2018-03-04 10:43] LABS: SQUAMOUS EPITHIAL 2 /hpf (0-5); URINE BACTERIA MOD (<OCC); URINE BILIRUBIN NEGATIVE (NEGATIVE); URINE BLOOD LARGE (NEGATIVE); URINE CLARITY TURBID (Clear); URINE COLOR AMBER (YELLOW); URINE GLUCOSE (UA) NEG (Normal); URINE LEUKOCYTE ESTERASE LARGE Leu/uL (Negative); URINE PROTEIN 100 mg/dL (NEGATIVE); URINE UROBILINOGEN 0.2-1.0 mg/dL (0.2-1.0); WBC CLUMPS MANY /hpf
[2018-03-04 10:49] LABS: ALB/GLOB RATIO 1.2 (1.0-2.1); ALBUMIN 4.7 g/dL (3.5-5.0)
[2018-03-04 12:12] LABS: EOSINOPHIL 1 % (0-7); LYMPHOCYTE 11 % (20-50); MONOCYTE 9 % (0-10); NEUTROPHIL 79 % (42-75); TOTAL CELLS COUNTED 100
[2018-03-04 12:18] LABS: ANISOCYTOSIS SLIGHT; PLATELET ESTIMATE NORMAL (NORMAL)
--- NOTE | 2018-03-04 12:33 | ED PDOC ---
HPI: Male Pain Time Seen by Provider: 03/04/18 09:38 Chief Complaint (Nursing): Male Genitourinary Chief Complaint (Provider): odor from nephrostomy site History Per: Patient, Licensing Engineer (Voyce (see RN note for #)) History/Exam Limitations: no limitations Onset/Duration Of Symptoms: Days (4-5) Current Symptoms Are (Timing): Still Present Severity: Mild Quality Of Discomfort: Pressure. denies: Burning Associated Symptoms: denies: Fever, Nausea, Vomiting, Diarrhea, Loss Of Appetite, Urinary Symptoms Additional Complaint(s): 82 yo male presents w/ c/o foul odor from nephrostomy tube, states needs it cleaned, has not had care to it since placement several weeks ago. States took ? antibiotic last week but completed course. Denies pain at site, fever, weakness or flank pain. States urine draining to bag, cloudy, no blood in bag. Urinates some but infrequently. urology: Dr Peña Past Medical History Reviewed: Historical Data, Nursing Documentation, Vital Signs Vital Signs: Last Vital Signs Temp 97.6 F 03/04/18 09:17 Pulse 95 H 03/04/18 09:17 Resp 16 03/04/18 09:17 BP 146/69 03/04/18 09:17 Pulse Ox 96 03/04/18 09:17 - Medical History PMH: Arthritis, Atrial Fibrillation, HTN Denies: Anemia, Chronic Kidney Disease - Family History Family History: States: Unknown Family Hx - Home Medications Home Medications: Ambulatory Orders Medication Instructions Recorded Amlodipine Besylate/Benazepril 1 cap PO DAILY #30 capsule 04/16/16 [Lotrel 5-20 mg Capsule] Apixaban [Eliquis] 2.5 mg PO BID 03/02/17 Cephalexin [Keflex] 500 mg PO TID #21 capsule 03/04/18 - Allergies Allergies/Adverse Reactions: Allergies Allergy/AdvReac Type Severity Reaction Status Date / Time No Known Allergies Allergy Verified 10/22/17 11:07 Review of Systems ROS Statement: Except As Marked, All Systems Reviewed And Found Negative Constitutional: Negative for: Fever, Chills Cardiovascular: Negative for: Chest Pain Respiratory: Negative for: Shortness of Breath Gastrointestinal: Negative for: Abdominal Pain, Diarrhea Genitourinary Male: Positive for: Dysuria Musculoskeletal: Negative for: Neck Pain, Shoulder Pain, Arm Pain, Back Pain Skin: Negative for: Rash, Lesions, Jaundice Neurological: Negative for: Weakness, Numbness Psych: Negative for: Depression Physical Exam - Reviewed Nursing Documentation Reviewed: Yes Vital Signs Reviewed: Yes - Physical Exam Appears: Positive for: Well Head Exam: Positive for: ATRAUMATIC, NORMAL INSPECTION, NORMOCEPHALIC Skin: Positive for: Normal Color, Warm, DRY Eye Exam: Positive for: EOMI, Normal appearance, PERRL ENT: Positive for: Normal ENT Inspection Neck: Positive for: Normal, Painless ROM Cardiovascular/Chest: Positive for: Regular Rate, Rhythm Respiratory: Positive for: CNT, Normal Breath Sounds Gastrointestinal/Abdominal: Positive for: Soft. Negative for: Tenderness, Guarding Back: Positive for: Normal Inspection, Other (R flank nephrostomy, poor hygiene to area/dressing partially intact, no blood or discharge around site). Negative for: L CVA Tenderness, R CVA Tenderness Extremity: Positive for: Normal ROM Neurologic/Psych: Positive for: Alert, Oriented. Negative for: Motor/Sensory Deficits - Laboratory Results Result Diagrams: 03/04/18 10:06 03/04/18 10:06 - ECG O2 Sat by Pulse Oximetry: 96 Medical Decision Making Medical Decision Making: checked labs at baseline, WBC <10 UA demonstrates UTI, UCx sent to followup Initiate PO keflex Patient wants to go home, states has appt upcoming w clinic/ urology Results explained including need for Abx and followup Disposition - Clinical Impression Clinical Impression: Urinary tract infection, Difficulty managing nephrostomy care - Patient ED Disposition Is Patient to be Admitted: No Counseled Patient/Family Regarding: Studies Performed, Diagnosis, Need For Followup, Rx Given - Disposition Referrals: Yuniel Peña MD [Medical Doctor] - Disposition: Routine/Home Disposition Time: 11:45 Condition: STABLE Additional Instructions: Followup with urologist within next week. Keep catheter clean and dry. Take antibiotics as directed. urine culture performed, you will be called in 2-3 days if you need your antibiotic changed. Seguimiento con el urlogo dentro de la prxima semana. Mantenga el catter limpio y seco. [place] los antibiticos segn lo indicado. la cultura de la orina realizada, le llamarn en 2-3 snyder si usted necesita carvajal antibitico cambiado. Prescriptions: Cephalexin [Keflex] 500 mg PO TID #21 capsule Instructions: Urinary Tract Infection, Adult (DC), How to Care for Your Nephrostomy Tube Forms: [facility] (Kazakh) Print Language: ROMANIAN
== END 2018-03-04 12:30 | disposition home or self-care (01) ==
LOC: H.ER 09:10
DX: N39.0 Urinary tract infection, site not specified (principal); Z93.6 Other artificial openings of urinary tract status; I10 Essential (primary) hypertension; I48.91 Unspecified atrial fibrillation; Z79.01 Long term (current) use of anticoagulants